=== PATIENT | female | born 1965 | race Caucasian/White ===

== ENCOUNTER 2018-08-13 22:06 | Emergency (ER) | payer OTHER ==
[2018-08-13] MEDS ORDERED: Sodium Chloride 0.9% 10 ML Syringe FLUSH PRN ×2 (22:10→22:11)
[2018-08-13] MEDS ORDERED: HYDROmorphone 1 MG/ML Syringe IVPUSH ONE ×2 (22:12→23:44)
[2018-08-13 23:04] LABS: CHLORIDE,CL 103 mmol/L (98-107); SODIUM,NA 140 mmol/L (136-145)
[2018-08-13 23:09] LABS: ANION GAP 12.6 mmol/L (10-20)
[2018-08-14] MEDS ORDERED: Take Home: Acetaminophen/HYDROcodone 325-10 MG, 5 Tab Pack PO ONE (00:22)
[2018-08-14] MEDS ORDERED: Take Home: Cyclobenzaprine 10 MG Tab, 4 Tab Pack PO ONE (00:23)
--- NOTE | 2018-08-14 08:39 | CT ---
[id number] CT/CT Abdomen Pelvis WO IV EXAM: CT Abdomen Pelvis WO IV CLINICAL DATA: RIGHT FLANK PAIN COMPARISON STUDY: None. FINDINGS: Evaluation limited bilateral intravenous contrast. Gallbladder has been resected. Liver, spleen, pancreas, and adrenal glands are unremarkable. Hypodense lesions in both kidneys, nonspecific as no contrast was given. Largest is on the right measuring 25 mm in diameter. One of these is hyperdense on the left. No urinary tract calculi. No evidence of urinary tract obstruction. Urinary bladder is unremarkable. Scattered colonic diverticula. No evidence of acute diverticulitis. Appendix is normal. No small bowel obstruction. Moderate to advanced L4-5 and L5-S1 spondylosis. 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 IMPRESSION: Within limitations of no contrast material, no acute findings in the abdomen or pelvis. Other findings are described above. Niraj Coughlin MD 08/14/18 0837 Thank you for allowing us to participate in the care of your patient.
--- NOTE | 2018-08-15 06:18 | EDM.PDOC ---
ED HPI GENERAL MEDICAL PROBLEM - General Chief Complaint: Back Pain or Injury Stated Complaint: Right back pain Time Seen by Provider: 08/13/18 22:06 Source of Information: Reports: Patient History Limitations: Reports: No Limitations - History of Present Illness INITIAL COMMENTS - FREE TEXT/NARRATIVE: Pt. presents to ER with R sided low back pain that started on . Pt. has a history of low back pain and has undergone a laminectomy in the past. She states that this pain is located higher than where she normally has pain. Denies any urinary frequency, hematuria, fever, chills, abdominal pain, chest pain, or shortness of breath. No fever or chills. She denies any trauma to the area that she is aware of. Pt. states that the discomfort is worse with movement /flexion and lateral bending of the lumbar spine. Denies any radiation into lower extremities. 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: Other (see below) Other Treatments ASSOCIATE JAVA DEVELOPER: heat Right low thoracic back Pain Score (Numeric/FACES): 3 - Related Data Allergies Allergy/AdvReac Type Severity Reaction Status Date / Time amitriptyline Allergy Other Verified 08/14/18 01:25 ciprofloxacin [From Cipro] Allergy Hives Verified 08/14/18 01:25 ciprofloxacin HCl Allergy Hives Verified 08/14/18 01:25 [From Cipro] Home Meds: Home Meds Acetaminophen/HYDROcodone [[place] 162.5-5 MG] 1 tab PO Q4H 07/11/14 [History] buPROPion [Wellbutrin SR] 150 mg PO DAILY 02/09/17 [History] Past Medical History HEENT History: Reports: Impaired Vision 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: Musculoskeletal History: Reports: Back Pain, Chronic Neurological History: Reports: Migraines Psychiatric History: Reports: Depression - Past Surgical History GI Surgical History: Reports: Cholecystectomy Other Musculoskeletal Surgeries/Procedures:: back surgery ED ROS GENERAL - Review of Systems Review Of Systems: See Below Constitutional: Reports: No Symptoms HEENT: Reports: No Symptoms Respiratory: Reports: No Symptoms Cardiovascular: Reports: No Symptoms Endocrine: Reports: No Symptoms GI/Abdominal: Reports: No Symptoms : Reports: No Symptoms Musculoskeletal: Reports: Back Pain, Other (see above) Skin: Reports: No Symptoms Neurological: Reports: No Symptoms Psychiatric: Reports: No Symptoms Hematologic/Lymphatic: Reports: No Symptoms Immunologic: Reports: No Symptoms ED EXAM, GENERAL - Physical Exam Exam: See Below Exam Limited By: No Limitations General Appearance: Alert, WD/WN, No Apparent Distress Neck: Normal Inspection, Supple, Non-Tender, Full Range of Motion Respiratory/Chest: No Respiratory Distress, Lungs Clear, Normal Breath Sounds, No Accessory Muscle Use, Chest Non-Tender Cardiovascular: Normal Peripheral Pulses, Regular Rate, Rhythm, No Edema, No Gallop, No JVD, No Murmur, No Rub Peripheral Pulses: 4+: Radial (L), Radial (R) GI/Abdominal: Soft, Non-Tender, No Distention, No Mass (Female) Exam: Deferred Rectal (Female) Exam: Deferred Back Exam: Paraspinal Tenderness (approx level of L1. Increased pain with movement.), Vertebral Tenderness Extremities: Normal Inspection, Normal Range of Motion, Non-Tender, Normal Capillary Refill, No Pedal Edema Neurological: Alert, Oriented, CN II-XII Intact, Normal Cognition, Normal Gait, Normal Reflexes, No Motor/Sensory Deficits Skin Exam: Warm, Dry, Intact, Normal Color, No Rash Course - Vital Signs Last Recorded V/S: Last Vital Signs Temp 35.8 C 08/13/18 22:06 Pulse 86 08/14/18 00:10 Resp 16 08/14/18 00:10 BP 134/86 08/14/18 00:10 Pulse Ox 99 08/14/18 00:10 - Orders/Labs/Meds Labs: Laboratory Tests 08/13/18 08/13/18 08/13/18 Range/Units 22:30 22:30 22:30 WBC 7.2 (4.0-10.0) x10^3/uL RBC 4.91 (4.00-5.50) x10^6/uL Hgb 14.2 (12.0-16.0) g/dL Hct 42.7 (33.0-47.0) % MCV 87.0 (78.0-93.0) fL MCH 28.9 (26.0-32.0) pg MCHC 33.3 (32.0-36.0) g/dL RDW Coeff of Ruben 13.9 (10.0-15.0) % Plt Count 307 (130-400) x10^3/uL Neut % (Auto) 58.2 (50.0-80.0) % Lymph % (Auto) 30.8 (25.0-50.0) % [place] % (Auto) 8.1 (2.0-11.0) % Eos % (Auto) 2.6 (0.0-4.0) % Baso % (Auto) 0.3 (0.2-1.2) % PT 10.3 (10.0-12.8) SEC INR 0.9 L (2.0-3.5) Sodium 140 (136-145) mmol/L Potassium 3.6 (3.5-5.1) mmol/L Chloride 103 (98-107) mmol/L Carbon Dioxide 28 (21-32) mmol/L Anion Gap 12.6 (10-20) mmol/L BUN 10 (7-18) mg/dL Creatinine 0.8 (0.55-1.02) mg/dL Est Cr Clr Drug Dosing TNP Estimated GFR (MDRD) > 60 Glucose 107 H (74-106) mg/dL Calcium 9.1 (8.5-10.1) mg/dL Corrected Calcium 9.34 (8.5-10.1) mg/dL Phosphorus 2.8 (2.6-4.7) mg/dL Magnesium 1.8 (1.8-2.4) mg/dL Total Bilirubin 0.8 (0.2-1.0) mg/dL AST 15 (15-37) U/L ALT 27 (14-59) U/L Alkaline Phosphatase 90 (46-116) U/L C-Reactive Protein 0.2 (<=0.9) mg/dL Total Protein 7.2 (6.4-8.2) g/dL Albumin 3.7 (3.4-5.0) g/dL Globulin 3.5 Albumin/Globulin Ratio 1.06 Urine Color (YELLOW) Urine Appearance (CLEAR) Urine pH (5.0-8.0) Ur Specific [place] Urine Protein (NEGATIVE) mg/dL Urine Glucose (UA) (NEGATIVE) mg/dL Urine Ketones (NEGATIVE) mg/dL Urine Occult Blood (NEGATIVE) Urine Nitrite (NEGATIVE) Urine Bilirubin (NEGATIVE) Urine Urobilinogen (0.2) EU/dL Ur Leukocyte Esterase (NEGATIVE) Urine RBC (NOT SEEN) /HPF Urine WBC (NOT SEEN) /HPF Ur Squamous Epith Cells (NEGATIVE) /HPF Urine Bacteria (NEGATIVE) /HPF Urine Mucus (NEGATIVE) /LPF 08/13/18 Range/Units 23:00 WBC (4.0-10.0) x10^3/uL RBC (4.00-5.50) x10^6/uL Hgb (12.0-16.0) g/dL Hct (33.0-47.0) % MCV (78.0-93.0) fL MCH (26.0-32.0) pg MCHC (32.0-36.0) g/dL RDW Coeff of Ruben (10.0-15.0) % Plt Count (130-400) x10^3/uL Neut % (Auto) (50.0-80.0) % Lymph % (Auto) (25.0-50.0) % [place] % (Auto) (2.0-11.0) % Eos % (Auto) (0.0-4.0) % Baso % (Auto) (0.2-1.2) % PT (10.0-12.8) SEC INR (2.0-3.5) Sodium (136-145) mmol/L Potassium (3.5-5.1) mmol/L Chloride (98-107) mmol/L Carbon Dioxide (21-32) mmol/L Anion Gap (10-20) mmol/L BUN (7-18) mg/dL Creatinine (0.55-1.02) mg/dL Est Cr Clr Drug Dosing Estimated GFR (MDRD) Glucose (74-106) mg/dL Calcium (8.5-10.1) mg/dL Corrected Calcium (8.5-10.1) mg/dL Phosphorus (2.6-4.7) mg/dL Magnesium (1.8-2.4) mg/dL Total Bilirubin (0.2-1.0) mg/dL AST (15-37) U/L ALT (14-59) U/L Alkaline Phosphatase (46-116) U/L C-Reactive Protein (<=0.9) mg/dL Total Protein (6.4-8.2) g/dL Albumin (3.4-5.0) g/dL Globulin Albumin/Globulin Ratio Urine Color Yellow (YELLOW) Urine Appearance Clear (CLEAR) Urine pH 7.0 (5.0-8.0) Ur Specific [place] 1.010 Urine Protein Negative (NEGATIVE) mg/dL Urine Glucose (UA) Negative (NEGATIVE) mg/dL Urine Ketones Negative (NEGATIVE) mg/dL Urine Occult Blood Trace-intact H (NEGATIVE) Urine Nitrite Negative (NEGATIVE) Urine Bilirubin Negative (NEGATIVE) Urine Urobilinogen 0.2 (0.2) EU/dL Ur Leukocyte Esterase Negative (NEGATIVE) Urine RBC 0-5 (NOT SEEN) /HPF Urine WBC 0-5 (NOT SEEN) /HPF Ur Squamous Epith Cells Rare (NEGATIVE) /HPF Urine Bacteria Rare (NEGATIVE) /HPF Urine Mucus Rare H (NEGATIVE) /LPF Meds: Medications Discontinued Medications Generic Name Dose Route Start Last Admin Trade Name Freq PRN Reason Stop Dose Admin Hydrocodone Bitart/Acetaminophen 2 packet 08/14/18 00:22 08/14/18 00:40 Take Home: Acetaminophen/Hydrocodone 325-10mg PO 08/14/18 00:23 2 packet ONETIME ONE Administration Cyclobenzaprine HCl 2 packet 08/14/18 00:23 08/14/18 00:40 Take Home: Cyclobenzaprine 10 Mg, 4 Tab Pack PO 08/14/18 00:24 2 packet ONETIME ONE Administration Hydromorphone HCl 1 mg 08/13/18 22:12 08/13/18 22:26 Dilaudid IVPUSH 08/13/18 22:13 1 mg ONETIME ONE Administration Hydromorphone HCl 1 mg 08/13/18 23:44 08/13/18 23:58 Dilaudid IVPUSH 08/13/18 23:45 1 mg ONETIME ONE Administration Sodium Chloride 10 ml 08/13/18 22:10 Saline Flush FLUSH ASDIRECTED PRN Keep Vein Open Sodium Chloride 10 ml 08/13/18 22:11 Saline Flush FLUSH ASDIRECTED PRN Keep Vein Open - Radiology Interpretation Free Text/Narrative:: CT abdomen and pelvis was obtained. There was a L sided kidney stone. No obvious course of the pain on the R sided was indentified. Departure - Departure Time of Disposition: 00:45 Disposition: Home, Self-Care 01 Clinical Impression: Low back pain - Discharge Information Instructions: Acetaminophen; Hydrocodone tablets or capsules, Cyclobenzaprine tablets, Acute Back Pain, Adult Referrals: Oneyda Swift DO [Primary Care Provider] - Forms: ED Department Discharge Additional Instructions: Increase norco as needed. 1-2 tab every 4-6 hours as needed for pain. flexeril 10mg 1 three times daily for muscle spasm. PT will contact you regarding an appointment. Ice back every 1-2 hours - Problem List Review Problem List Initiated/Reviewed/Updated: Yes - Assessment/Plan Plan: Increase norco as needed. 1-2 tab every 4-6 hours as needed for pain. flexeril 10mg 1 three times daily for muscle spasm. PT will contact you regarding an appointment. Ice back every 1-2 hours
== END 2018-08-14 00:45 | disposition home or self-care (01) ==
LOC: VM.ED 22:06
DX: M54.5 Low back pain (principal); F32.9 Major depressive disorder, single episode, unspecified; Z79.899 Other long term (current) drug therapy; Z88.1 Allergy status to other antibiotic agents; Z88.8 Allergy status to other drugs, medicaments and biological substances
CPT/HCPCS: 74176; 80053; 81001; 83735; 84100; 85025; 85610; 86140; 96374; 96376; 99284; A9270; J1170

== ENCOUNTER 2019-04-12 08:39 | Day surgery (SDC) | payer BC ==
[~2019-04-12 08:39] MED LIST: Lactated Ringers 1,000 ML IV SCH; Sodium Chloride 0.9% 10 ML Syringe FLUSH PRN
[2019-04-12] MEDS ORDERED: fentaNYL 100 MCG/2 ML SDV ONE (08:51)
[2019-04-12] MEDS ORDERED: Propofol 200 MG/20 ML SDV ONE (08:51)
[2019-04-12] MEDS: Lactated Ringers 1,000 ML IV SCH (09:00)
--- NOTE | 2019-04-12 14:39 | OR ---
PREOPERATIVE DIAGNOSIS: Screening. POSTOPERATIVE DIAGNOSIS: Right-sided diverticulosis. PROCEDURE: Colonoscopy. FINDINGS: Right-sided scattered diverticulosis. DETAILS OF PROCEDURE: After obtaining informed consent, the patient was brought to the operating room and placed under monitored anesthesia care. A well- lubricated lighted colonoscope equipped with Endocuff was inserted into the anus and traversed all the way to the cecum as identified by the appendiceal orifice and the ileocecal valve. We did note scattered diverticula in the right colon. The scope was then withdrawn over the course of 10 minutes and no pathology was found aside from the aforementioned diverticulosis in the right colon. The colonoscope was then retroflexed in the rectum and this was normal. The colonoscope was removed. The patient should have a repeat colonoscopy in 10 years or sooner if issues arise. CJM: 04/12/2019 10:56:39 MODL: 04/12/2019 14:32:49 /[id number]
== END 2019-04-12 12:17 | disposition home or self-care (01) ==
LOC: VM.SDS 08:39
PROVIDERS: ATTEND Surgery
DX: Z12.11 Encounter for screening for malignant neoplasm of colon (principal); K57.30 Diverticulosis of large intestine without perforation or abscess without bleeding; E78.5 Hyperlipidemia, unspecified; F33.1 Major depressive disorder, recurrent, moderate; G43.109 Migraine with aura, not intractable, without status migrainosus; G89.4 Chronic pain syndrome; M54.41 Lumbago with sciatica, right side; H91.90 Unspecified hearing loss, unspecified ear; F17.210 Nicotine dependence, cigarettes, uncomplicated; E66.9 Obesity, unspecified; Z68.25 Body mass index [BMI] 25.0-25.9, adult; Z88.1 Allergy status to other antibiotic agents; Z88.8 Allergy status to other drugs, medicaments and biological substances; Z79.1 Long term (current) use of non-steroidal anti-inflammatories (NSAID); Z79.899 Other long term (current) drug therapy
CPT/HCPCS: J2704; J3010; J7120

== ENCOUNTER 2020-06-29 16:26 | Emergency (ER) | payer OTHER, BC ==
[2020-06-29] MEDS ORDERED: Sodium Chloride 0.9% 10 ML Syringe FLUSH PRN (16:32)
[2020-06-29] MEDS ORDERED: fentaNYL 50 MCG/ML SDV IVPUSH ONE (16:32)
[2020-06-29] MEDS ORDERED: Ondansetron 4 MG/2 ML SDV IVPUSH ONE (16:32)
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
[2020-06-29] MEDS ORDERED: Diphtheria,Pertussis(Acell),Tetanus Vaccine 0.5 ML Syringe IM ONE (17:06)
--- NOTE | 2020-06-29 17:08 | CR ---
[id number] RAD/RAD Hand Left 3V EXAM: 3 VIEWS LEFT HAND. INDICATION: THUMB INJURY. COMPARISON: None. DISCUSSION: Very subtle cortical irregularity involving the base of the proximal 1st phalanx suggestive of nondisplaced fracture. IMPRESSION: 1. As above Steffen Tello DO 06/29/20 [id number] Thank you for allowing us to participate in the care of your patient.
[2020-06-29] MEDS ORDERED: ceFAZolin 1 GM Vial IVPUSH ONE (17:14)
[2020-06-29] MEDS ORDERED: Take Home: Acetaminophen/HYDROcodone 325-5 MG, 5 Tab Pack PO ONE (17:31)
[2020-06-30] MEDS ORDERED: Take Home: Acetaminophen/HYDROcodone 325-5 MG, 5 Tab Pack PO ONE (11:13)
== END 2020-06-29 17:40 | disposition home or self-care (01) ==
LOC: VM.ED 16:26
DX: S62.515A Nondisplaced fracture of proximal phalanx of left thumb, initial encounter for closed fracture (principal); E78.00 Pure hypercholesterolemia, unspecified; Z88.1 Allergy status to other antibiotic agents; Z88.8 Allergy status to other drugs, medicaments and biological substances; Z79.899 Other long term (current) drug therapy; Z23 Encounter for immunization; W22.8XXA Striking against or struck by other objects, initial encounter
CPT/HCPCS: 12001; 73130-LT; 90471; 90715; 96374; 96375; 99283-25; A9270-GY; J0690; J2405; J3010

== ENCOUNTER 2022-12-19 14:56 | Emergency (ER) | payer OTHER ==
[2022-12-19] MEDS ORDERED: Ketorolac 30 MG/ML SDV IM ONE (15:23)
[2022-12-19] MEDS ORDERED: predniSONE 20 MG Tab PO ONE (16:20)
[2022-12-19] MEDS ORDERED: Take Home: predniSONE 20 MG, 2 Tab Pack PO ONE (16:21)
== END 2022-12-19 16:30 | disposition home or self-care (01) ==
LOC: VM.ED 14:56
DX: M54.6 Pain in thoracic spine (principal); F17.210 Nicotine dependence, cigarettes, uncomplicated; Z88.1 Allergy status to other antibiotic agents; Z88.8 Allergy status to other drugs, medicaments and biological substances; Z79.899 Other long term (current) drug therapy; Z90.49 Acquired absence of other specified parts of digestive tract
CPT/HCPCS: 72072; 96372; 99283 ×2; J1885; J7512 ×2

== ENCOUNTER 2022-12-25 17:50 | Emergency (ER) | payer OTHER ==
[2022-12-25] MEDS ORDERED: Sodium Chloride 0.9% 10 ML Syringe FLUSH PRN (18:00)
[2022-12-25] MEDS: HYDROmorphone 1 MG/ML Syringe IVPUSH ONE ×2 (18:15→18:56)
[2022-12-25] MEDS: Ketorolac 30 MG/ML SDV IVPUSH ONE (18:15)
== END 2022-12-25 19:17 | disposition home or self-care (01) ==
LOC: VM.ED 17:50
DX: M25.512 Pain in left shoulder (principal); M54.9 Dorsalgia, unspecified; F17.210 Nicotine dependence, cigarettes, uncomplicated; Z88.8 Allergy status to other drugs, medicaments and biological substances; Z88.1 Allergy status to other antibiotic agents
CPT/HCPCS: 96374; 96375; 96376; 99283-25; J1170; J1885

== ENCOUNTER → 2024-03-21 | Emergency (ER) | payer OTHER | LOC: VM.ED 16:36 | DX: Z53.21 Procedure and treatment not carried out due to patient leaving prior to being seen by health care provider (principal) ==